=== PATIENT | female | born 1940 | race Caucasian/White ===

== ENCOUNTER 2017-02-24 10:48 | Emergency (ER) | payer MEDICARE ==
[~2017-02-24] VITALS: Ht 162.6 cm; Wt 83.0 kg
[2017-02-24 11:17] VITALS: BP 160/68
--- NOTE | 2017-02-24 12:10 | RAD ---
Indication fall. Closed head injury. Facial injury. Pain. Suspect fracture. Noncontrast images of the head were obtained. Note is made of a previous examination 06/07/2009. Maxillofacial images were reformatted in the coronal and sagittal planes. CT head: Findings. The calvarium appears unremarkable. The visualized paranasal sinuses appear normal. 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 There is mild underlying atrophy. There is no subdural or epidural hematoma. There is no mass or midline shift. An acute finding is not seen. Maxillofacial CT: Findings There is some slight soft tissue swelling over the left forehead. Zygomatic arches appear unremarkable. The mandible appears normal. No maxillary fracture is seen. Medial and lateral perez of the orbits are unremarkable. No facial fracture is apparent. IMPRESSION: No acute finding seen in the head. No evidence of facial fracture PQRS Compliance Statement: One or more of the following individualized dose reduction techniques were utilized for this examination: 1. Automated exposure control 2. Adjustment of the mA and/or kV according to patient size 3. Use of iterative reconstruction technique
[2017-02-24] MEDS ORDERED: MECL25TA3 PO (12:43)
--- NOTE | 2017-02-24 12:43 | PHYS DOC ---
Past Medical History Past Medical History: CVA, Diabetes-Type II, Renal Disease Past Surgical History: Cholecystectomy, Tubal ligation, Other Additional Past Surgical Histo: hernia repair, bladder lift, external carotid artery "tied off", eye sx, Alcohol Use: None Drug Use: None Adult General Chief Complaint Chief Complaint: FACE PAIN HPI HPI Patient is a 77 year old female who presents with mild headache and face bruising after fall few days ago. She states she has intermittent dizziness for some time, spinning sensation, that occurs with quick movements; and she has been evaluated by her primary care doctor for this. This dizziness preceded her falling. She is usually able to grab something before falling, but this time she missed her family medicine physician assistant. She denies vision changes, nausea or vomiting, numbness, tingling, weakness, chest pain, palpitations, diaphoresis, back pain, abdominal pain, or chills. She states she has been taking hydroxyzine as needed for dizziness, but it does not help. Review of Systems Review of Systems Constitutional: Denies fever or chills [] Eyes: Denies change in visual acuity, redness, or eye pain [] HENT: Denies nasal congestion or sore throat [] Respiratory: Denies cough or shortness of breath [] Cardiovascular: No additional information not addressed in HPI [] GI: Denies abdominal pain, nausea, vomiting, bloody stools or diarrhea [] : Denies dysuria or hematuria [] Musculoskeletal: Denies back pain or joint pain [] Integument: Denies rash or skin lesions [] Neurologic: Denies focal weakness or sensory changes [] Endocrine: Denies polyuria or polydipsia [] Allergies Allergies Allergies Coded Allergies Type Severity Reaction Last Updated Verified acetaminophen Allergy Unknown 02/24/17 Yes codeine Allergy Unknown 02/24/17 Yes Physical Exam Physical Exam Constitutional: Well developed, well nourished, no acute distress, non-toxic appearance. [] HENT: Normocephalic, atraumatic, bilateral external ears normal, oropharynx moist, no oral exudates, nose normal. No diez sign, hemotympanum, raccoon eyes [] Eyes: PERRLA, EOMI, conjunctiva normal, no discharge. Infraorbital ecchymosis bilaterally with left periorbital ecchymosis. No subconjunctival hemorrhage. Large right cataract. [] Neck: Normal range of motion, no tenderness, supple. [] Cardiovascular:Heart rate regular rhythm [] Lungs & Thorax: Bilateral breath sounds clear to auscultation [] Abdomen: Bowel sounds normal, soft, no tenderness. [] Skin: Warm, dry, no erythema, no rash. [] Back: No tenderness, no CVA tenderness. [] Extremities: No tenderness, ROM intact, no edema. [] Neurologic: Alert and oriented X 3, normal motor function, normal sensory function, no focal deficits noted. [] Psychologic: Affect normal, judgement normal, mood normal. [] Current Patient Data Vital Signs Vital Signs Date Time Temp Pulse Resp B/P (MAP) Pulse Ox O2 Delivery O2 Flow Rate FiO2 02/24/17 11:17 97.7 79 18 160/68 (98) 96 Room Air 97.7 Radiology/Procedures Radiology/Procedures CT head and maxillofacial without contrast IMPRESSION: No acute finding seen in the head. No evidence of facial fracture DICTATED and SIGNED BY: DEBBIE HANSEN MD DATE: 02/24/17 1158 Course & Med Decision Making Course & Med Decision Making Imaging is nonacute. She is ready to go home. Discussed use of meclizine as needed for dizziness; she states she has never used this before. Return precautions given. She understands and agrees with plan. Dragon Disclaimer Jonny Disclaimer This electronic medical record was generated, in whole or in part, using a voice recognition dictation system. Departure Departure Impression: Primary Impression: Closed head injury Additional Impression: Dizziness Disposition: 01 HOME, SELF-CARE Condition: STABLE Referrals: STAR HOFFMAN (PCP) Patient Instructions: Dizziness, [id number], Head Injury, Adult, [id number] Additional Instructions: Take meclizine as needed for dizziness. Follow-up with your primary care doctor. Return for any concerns. Scripts Meclizine Hcl (MECLIZINE HCL) 25 Mg Tablet 1 TAB PO PRN TID Y for DIZZINESS, #10 TAB Prov: Madiha SOSA MD 02/24/17 Problem Qualifiers Primary Impression: Closed head injury Encounter type: initial encounter Qualified Codes: S09.90XA - Unspecified injury of head, initial encounter Madiha SOSA MD February 24, 2017 12:43
== END 2017-02-24 12:55 | disposition home or self-care (01) ==
LOC: ER 10:48
DX: S00.12XA Contusion of left eyelid and periocular area, initial encounter (principal); S09.90XA Unspecified injury of head, initial encounter; E11.9 Type 2 diabetes mellitus without complications; Z88.5 Allergy status to narcotic agent; Z88.6 Allergy status to analgesic agent; Z86.73 Personal history of transient ischemic attack (TIA), and cerebral infarction without residual deficits; W18.39XA Other fall on same level, initial encounter; Y93.89 Activity, other specified; Y92.89 Other specified places as the place of occurrence of the external cause; Y99.8 Other external cause status
CPT/HCPCS: 70450; 70486; 99284-25